=== PATIENT | female | born 1950 | race Caucasian/White ===

== ENCOUNTER 2017-07-30 13:49 | Inpatient (IN) ==
[2017-07-30] MEDS ORDERED: ASPIRIN CHEW 81 MG TABLET PO STA (14:51)
[2017-07-30] MEDS ORDERED: ENOXAPARIN 80 MG/0.8 ML SYRINGE SUBCUT STA (14:51)
[2017-07-30] MEDS ORDERED: ASPIRIN 325 MG TABLET ONE (14:53)
[2017-07-30] MEDS ORDERED: ENOXAPARIN 80 MG/0.8 ML SYRINGE SUBCUT ONE (14:53)
[2017-07-30 15:11] LABS: Basophils # 0.1 10*3/uL (0.0-0.2); Basophils % 0.9 % (0.0-0.8); Eosinophils # 0.1 10*3/uL (0.0-0.87); Eosinophils % 1.1 % (0.00-10.9); Hematocrit 39.9 VOL% (35.7-47.0); Hemoglobin 13.3 GM/DL (12.0-16.0); Immature Granulocytes % 0.4 %; Immature Granulocytes Absolute 0.04 #; Lymphocytes # 1.9 10*3/uL (1.4-4.0); Lymphocytes % 18.6 % (21.3-54.2); Mean Corpuscular HGB Conc 33.3 GM/DL (32-36); Mean Corpuscular Hemoglobin 29 PG (27-34); Mean Corpuscular Volume 87.5 FL (87-102); Mean Platelet Volume 11.9 FL (9.6-12.0); Monocytes # 0.8 10*3/uL (0.11-0.8); Monocytes % 7.8 % (1.7-12.7); Neutrophils # 7.2 10*3/uL (1.4-7.4); Neutrophils % 71.2 % (38.7-73.9); Platelet Count 237 T/CUMM (130-400); Red Blood Count 4.56 MC/CUMM (3.8-5.5); Red Cell Distribution Width 15.3 % (9.3-17.3); White Blood Count 10.2 T/CUMM (4-12)
[2017-07-30 15:17] LABS: INR 0.9; Partial Thromboplastin Time 27.8 SECS (0-40)
[2017-07-30 16:14] LABS: Alanine Aminotransferase 57 U/L (13-56); Albumin 4.2 G/DL (3.4-5.0); Alkaline Phosphatase 79 U/L (45-117); Aspartate Amino Transferase 38 U/L (0-37); Bilirubin,Total < 0.39 MG/DL (0.2-1.0); Blood Urea Nitrogen 67 MG/DL (7-18); Calcium 9.8 MG/DL (8.5-10.1); Glucose 107 MG/DL (74-106); Osmolality,Calculated 280.7 MOS/KG (273-304); Potassium 4.9 MMOL/L (3.5-5.1); Sodium 131 MMOL/L (136-145); Total Protein 8.8 G/DL (6.4-8.3)
[2017-07-30 16:15] LABS: Troponin I Only < 0.015 NG/ML (0.00-0.045)
[2017-07-30] MEDS ORDERED: SODIUM CHLORIDE 0.9% 1,000 ML IV STA (16:24)
[2017-07-30] MEDS ORDERED: ONDANSETRON 4 MG/2 ML VIAL IV PRN (17:14)
[2017-07-30] MEDS ORDERED: ACETAMINOPHEN 325 MG TABLET PO PRN (17:14)
[2017-07-30] MEDS ORDERED: GLUCAGON 1 MG VIAL IM PRN (17:26)
[2017-07-30] MEDS ORDERED: DEXTROSE 50% 25 GM/50 ML VIAL IV PRN (17:26)
[2017-07-30] MEDS: PRAMIPEXOLE 1 MG TABLET PO SCH (21:46)
[2017-07-30] MEDS: ZALEPLON 5 MG CAPSULE PO SCH (21:46)
[2017-07-30] MEDS: POTASSIUM CHLORIDE 20 MEQ TABLET PO SCH (21:46)
[2017-07-30] MEDS: FENOFIBRATE 160 MG TABLET PO SCH (21:47)
[2017-07-30] MEDS: LEVOTHYROXINE 100 MCG TABLET PO SCH (21:47)
[2017-07-30] MEDS: [UNRECOGNIZED DRUG - OTHER] SUBCUT SCH (21:48)
[2017-07-30] MEDS: INSULIN REGULAR SUBCUT SCH (21:48)
[2017-07-30 22:49] LABS: Apearance,Urine CLEAR (Clear); Bilirubin,Urine Negative (Negative); Blood, Urine Negative (Negative); Glucose,Urine (UA) >=500 mg/dL (Negative); Ketones,Urine Negative (Negative); Mucus,Urine Occasional /LPF (Occasional); Nitrite,Urine Negative (Negative); Protein,Urine Negative; RBC,Urine <1 /HPF (0-4); Squamous Epithelial Cell,Urine Occasional /HPF (0-10); Urine Color Straw (Yellow); Urine Urobilinogen < 2.0 EU/DL (0.2-1.0); WBC,Urine <1 /HPF (0-6)
[2017-07-30] MEDS ORDERED: SIMETHICONE CHEW 125 MG TABLET PO ONE (23:00)
[2017-07-31 00:55] LABS: Troponin I Only < 0.015 NG/ML (0.00-0.045)
[2017-07-31 05:17] LABS: Basophils # 0.1 10*3/uL (0.0-0.2); Basophils % 0.8 % (0.0-0.8); Eosinophils # 0.2 10*3/uL (0.0-0.87); Eosinophils % 2.4 % (0.00-10.9); Hematocrit 35.2 VOL% (35.7-47.0); Hemoglobin 11.5 GM/DL (12.0-16.0); Immature Granulocytes % 0.3 %; Immature Granulocytes Absolute 0.02 #; Lymphocytes # 2.2 10*3/uL (1.4-4.0); Lymphocytes % 29.2 % (21.3-54.2); Mean Corpuscular HGB Conc 32.7 GM/DL (32-36); Mean Corpuscular Hemoglobin 29 PG (27-34); Mean Platelet Volume 11.3 FL (9.6-12.0); Monocytes # 0.7 10*3/uL (0.11-0.8); Monocytes % 8.9 % (1.7-12.7); Neutrophils # 4.5 10*3/uL (1.4-7.4); Neutrophils % 58.4 % (38.7-73.9); Platelet Count 209 T/CUMM (130-400); Red Cell Distribution Width 14.7 % (9.3-17.3); White Blood Count 7.6 T/CUMM (4-12)
[2017-07-31 05:49] LABS: Calcium 8.8 MG/DL (8.5-10.1); Osmolality,Calculated 282.4 MOS/KG (273-304); Potassium 4.7 MMOL/L (3.5-5.1)
[2017-07-31 05:52] LABS: Alanine Aminotransferase 46 U/L (13-56); Albumin 3.7 G/DL (3.4-5.0); Alkaline Phosphatase 75 U/L (45-117); Aspartate Amino Transferase 23 U/L (0-37); Bilirubin,Direct < 0.100 MG/DL (0.0-0.20); Bilirubin,Indirect 0.9 MG/DL (0.0-1.0)
[2017-07-31 05:56] LABS: Risk Ratio 8.38; VLDL CHOLESTEROL 91.6 MG/DL
[2017-07-31 05:58] LABS: Troponin I Only < 0.015 NG/ML (0.00-0.045)
[2017-07-31] MEDS: PANTOPRAZOLE 40 MG TABLET PO SCH (09:22)
[2017-07-31] MEDS: POTASSIUM CHLORIDE 20 MEQ TABLET PO SCH ×2 (09:22→21:31)
[2017-07-31] MEDS: INSULIN REGULAR SUBCUT SCH ×2 (09:24→21:32)
[2017-07-31] MEDS ORDERED: ASPIRIN EC 81 MG TABLET PO SCH (21:00)
[2017-07-31] MEDS: ZALEPLON 5 MG CAPSULE PO SCH (21:30)
[2017-07-31] MEDS: PRAMIPEXOLE 1 MG TABLET PO SCH (21:30)
[2017-07-31] MEDS: CARVEDILOL 3.125 MG TABLET PO SCH (21:31)
[2017-07-31] MEDS: [UNRECOGNIZED DRUG - OTHER] SUBCUT SCH (21:32)
[2017-07-31] MEDS: LEVOTHYROXINE 100 MCG TABLET PO SCH (21:32)
[2017-07-31] MEDS: FENOFIBRATE 160 MG TABLET PO SCH (21:32)
[2017-08-01 06:30] LABS: Basophils # 0.1 10*3/uL (0.0-0.2); Basophils % 0.8 % (0.0-0.8); Eosinophils # 0.2 10*3/uL (0.0-0.87); Eosinophils % 2.6 % (0.00-10.9); Hematocrit 35.3 VOL% (35.7-47.0); Hemoglobin 11.7 GM/DL (12.0-16.0); Immature Granulocytes % 0.5 %; Immature Granulocytes Absolute 0.03 #; Lymphocytes # 2.3 10*3/uL (1.4-4.0); Lymphocytes % 34.1 % (21.3-54.2); Mean Corpuscular HGB Conc 33.1 GM/DL (32-36); Mean Corpuscular Hemoglobin 29 PG (27-34); Mean Corpuscular Volume 88.3 FL (87-102); Monocytes # 0.8 10*3/uL (0.11-0.8); Monocytes % 12.1 % (1.7-12.7); Neutrophils # 3.3 10*3/uL (1.4-7.4); Neutrophils % 49.9 % (38.7-73.9); Platelet Count 193 T/CUMM (130-400); Red Cell Distribution Width 14.7 % (9.3-17.3); White Blood Count 6.6 T/CUMM (4-12)
[2017-08-01 07:04] LABS: Calcium 8.8 MG/DL (8.5-10.1); Osmolality,Calculated 283.4 MOS/KG (273-304); Potassium 4.2 MMOL/L (3.5-5.1)
[2017-08-01 07:57] VITALS: BP 107/63
[2017-08-01] MEDS ORDERED: FARXIGA PO SCH (09:00)
[2017-08-01] MEDS: PANTOPRAZOLE 40 MG TABLET PO SCH (09:39)
[2017-08-01] MEDS: POTASSIUM CHLORIDE 20 MEQ TABLET PO SCH (09:40)
[2017-08-01] MEDS: INSULIN REGULAR SUBCUT SCH (09:40)
[2017-08-01] MEDS: CARVEDILOL 3.125 MG TABLET PO SCH (09:40)
[2017-08-01] MEDS ORDERED: CARVEDILOL 3.125 MG TABLET PO ONE (10:00)
[2017-08-01] MEDS ORDERED: CARVEDILOL 6.25 MG TABLET PO SCH (17:00)
== END 2017-08-01 10:47 | disposition home or self-care (01) | DRG 683 ==
LOC: N.ED 13:49 → SUATTDRO 16:28 → N.EDINP 16:28 → N.2E 17:50
PROVIDERS: ADMIT Internal Medicine

== ENCOUNTER 2019-02-20 13:26 | Inpatient (IN) ==
[2019-02-20 14:38] LABS: Basophils # 0.1 10*3/uL (0.0-0.2); Basophils % 0.6 % (0.0-0.8); Eosinophils # 0.1 10*3/uL (0.0-0.87); Eosinophils % 0.9 % (0.00-10.9); Hematocrit 44.6 VOL% (35.7-47.0); Hemoglobin 14.6 GM/DL (12.0-16.0); Immature Granulocytes % 0.3 %; Immature Granulocytes Absolute 0.03 #; Lymphocytes # 1.6 10*3/uL (1.4-4.0); Lymphocytes % 15.9 % (21.3-54.2); Mean Corpuscular HGB Conc 32.7 GM/DL (32-36); Mean Corpuscular Volume 87.5 FL (87-102); Mean Platelet Volume 11.4 FL (9.6-12.0); Monocytes % 7.4 % (1.7-12.7); Neutrophils % 74.9 % (38.7-73.9); Platelet Count 210 T/CUMM (130-400); Red Cell Distribution Width 14.2 % (9.3-17.3)
[2019-02-20] MEDS ORDERED: DICYCLOMINE 20 MG/2 ML AMP IM ONE (14:55)
[2019-02-20] MEDS ORDERED: METOCLOPRAMIDE 10 MG/2 ML VIAL IV STA (14:55)
[2019-02-20] MEDS ORDERED: ONDANSETRON 4 MG/2 ML VIAL IV STA (14:55)
[2019-02-20] MEDS ORDERED: PANTOPRAZOLE 40 MG VIAL IV STA (14:55)
[2019-02-20 15:19] LABS: Amylase 32 U/L (25-115); Troponin I < 0.015 NG/ML (0.00-0.045)
[2019-02-20 16:02] LABS: Albumin 3.5 G/DL (3.4-5.0); Bilirubin,Total 1.2 MG/DL (0.2-1.0); Calcium 9.2 MG/DL (8.5-10.1); Osmolality,Calculated 281.7 MOS/KG (273-304); Total Protein 7.9 G/DL (6.4-8.3)
[2019-02-20] MEDS ORDERED: POTASSIUM BICARB EFFERVESCENT 25 MEQ TABLET PO ONE (16:24)
[2019-02-20] MEDS ORDERED: ONDANSETRON 4 MG/2 ML VIAL IV PRN (18:22)
[2019-02-20] MEDS ORDERED: ACETAMINOPHEN 325 MG TABLET PO PRN (18:22)
[2019-02-20] MEDS ORDERED: GLUCAGON 1 MG VIAL IM PRN (18:22)
[2019-02-20] MEDS ORDERED: DEXTROSE 50% 25 GM/50 ML VIAL IV PRN (18:22)
[2019-02-20] MEDS: POTASSIUM CHLORIDE 20 MEQ TABLET PO SCH (21:31)
[2019-02-20] MEDS: GEMFIBROZIL 600 MG TABLET PO SCH (21:31)
[2019-02-20] MEDS: DICYCLOMINE 20 MG TABLET PO SCH (21:31)
[2019-02-20] MEDS: PRAMIPEXOLE 1 MG TABLET PO SCH (21:31)
[2019-02-20] MEDS: ASPIRIN EC 81 MG TABLET PO SCH (21:31)
[2019-02-20] MEDS: PANTOPRAZOLE 40 MG TABLET PO SCH (21:32)
[2019-02-20] MEDS: AMITRIPTYLINE 25 MG TABLET PO PRN (21:32)
[2019-02-20] MEDS: ALLOPURINOL 300 MG TABLET PO SCH (21:32)
[2019-02-20] MEDS: traMADol 50 MG TABLET PO PRN (21:32)
[2019-02-20] MEDS: clonazePAM 0.5 MG TABLET PO SCH (21:32)
[2019-02-20] MEDS: FLUoxetine 10 MG CAPSULE PO SCH (21:33)
[2019-02-20] MEDS: INSULIN REGULAR 100 UNIT/ML SUBCUT SCH (21:33)
[2019-02-20 22:20] LABS: Apearance,Urine CLEAR (Clear); Bilirubin,Urine Negative (Negative); Blood, Urine Negative (Negative); Glucose,Urine (UA) Negative (Negative); Ketones,Urine Negative (Negative); Mucus,Urine Occasional /LPF (Occasional); Nitrite,Urine Negative (Negative); Protein,Urine Negative; RBC,Urine 3 /HPF (0-4); Squamous Epithelial Cell,Urine Occasional /HPF (0-10); Urine Specific Gravity 1.018 (1.001-1.035); WBC,Urine 1 /HPF (0-6)
[2019-02-20 22:21] LABS: Urine Color Dark yellow (Yellow)
[2019-02-21] MEDS: METOCLOPRAMIDE 10 MG/2 ML VIAL IV SCH ×4 (00:33→18:29)
[2019-02-21] MEDS: PREGABALIN 50 MG CAPSULE PO PRN ×2 (01:26→21:06)
[2019-02-21] MEDS ORDERED: DEXTROSE 10% 250 ML IV ONE (06:01)
[2019-02-21] MEDS: LEVOTHYROXINE 112 MCG TABLET PO SCH (06:20)
[2019-02-21 06:55] LABS: Albumin 2.9 G/DL (3.4-5.0); Bilirubin,Total 2.8 MG/DL (0.2-1.0); Calcium 8.9 MG/DL (8.5-10.1); Total Protein 6.7 G/DL (6.4-8.3)
[2019-02-21] MEDS: INSULIN REGULAR 100 UNIT/ML SUBCUT SCH ×4 (07:40→21:07)
[2019-02-21] MEDS: POTASSIUM CHLORIDE RIDER 10 MEQ in PREMIX 1 EACH IV PRN ×8 (08:00→23:48)
[2019-02-21] MEDS ORDERED: Semaglutide [Ozempic] 1 MG SUBCUT SCH (09:00)
[2019-02-21] MEDS: POTASSIUM CHLORIDE 20 MEQ TABLET PO SCH ×3 (09:03→21:06)
[2019-02-21] MEDS: GEMFIBROZIL 600 MG TABLET PO SCH ×2 (09:03→21:10)
[2019-02-21] MEDS: FENOFIBRATE 160 MG TABLET PO SCH (09:03)
[2019-02-21] MEDS: FUROSEMIDE 40 MG TABLET PO SCH (09:03)
[2019-02-21] MEDS: DICYCLOMINE 20 MG TABLET PO SCH ×3 (09:03→21:06)
[2019-02-21] MEDS: traMADol 50 MG TABLET PO PRN (10:30)
[2019-02-21] MEDS ORDERED: Evolocumab [Repatha Syringe] 140 MG SUBCUT SCH (19:25)
[2019-02-21] MEDS: clonazePAM 0.5 MG TABLET PO SCH (21:05)
[2019-02-21] MEDS: PANTOPRAZOLE 40 MG TABLET PO SCH (21:05)
[2019-02-21] MEDS: ALLOPURINOL 300 MG TABLET PO SCH (21:05)
[2019-02-21] MEDS: ASPIRIN EC 81 MG TABLET PO SCH (21:05)
[2019-02-21] MEDS: PRAMIPEXOLE 1 MG TABLET PO SCH (21:06)
[2019-02-21] MEDS: FLUoxetine 10 MG CAPSULE PO SCH (21:06)
[2019-02-21] MEDS: AMITRIPTYLINE 25 MG TABLET PO PRN (21:06)
[2019-02-22] MEDS: METOCLOPRAMIDE 10 MG/2 ML VIAL IV SCH ×5 (00:20→23:50)
[2019-02-22] MEDS: POTASSIUM CHLORIDE RIDER 10 MEQ in PREMIX 1 EACH IV PRN ×4 (01:00→15:05)
[2019-02-22] MEDS: traMADol 50 MG TABLET PO PRN (02:50)
[2019-02-22 05:54] LABS: Basophils % 0.6 % (0.0-0.8); Eosinophils # 0.1 10*3/uL (0.0-0.87); Eosinophils % 1.6 % (0.00-10.9); Hematocrit 41.7 VOL% (35.7-47.0); Hemoglobin 13.3 GM/DL (12.0-16.0); Immature Granulocytes % 0.6 %; Immature Granulocytes Absolute 0.03 #; Lymphocytes # 1.2 10*3/uL (1.4-4.0); Lymphocytes % 23.1 % (21.3-54.2); Mean Corpuscular HGB Conc 31.9 GM/DL (32-36); Mean Corpuscular Volume 89.5 FL (87-102); Mean Platelet Volume 12.5 FL (9.6-12.0); Monocytes % 7.9 % (1.7-12.7); Neutrophils % 66.2 % (38.7-73.9); Platelet Count 161 T/CUMM (130-400); Red Blood Count 4.66 MC/CUMM (3.8-5.5); Red Cell Distribution Width 14.6 % (9.3-17.3); White Blood Count 5.2 T/CUMM (4-12)
[2019-02-22 06:16] LABS: Bilirubin,Total 4.9 MG/DL (0.2-1.0); Calcium 8.5 MG/DL (8.5-10.1); Osmolality,Calculated 278.8 MOS/KG (273-304); Total Protein 6.8 G/DL (6.4-8.3)
[2019-02-22] MEDS: LEVOTHYROXINE 112 MCG TABLET PO SCH (06:21)
[2019-02-22] MEDS: INSULIN REGULAR 100 UNIT/ML SUBCUT SCH ×4 (07:27→20:55)
[2019-02-22] MEDS ORDERED: INDOMETHACIN SUPP 50 MG SUPP RECTAL ONE ×2 (08:27→08:51)
[2019-02-22] MEDS ORDERED: ETOMIDATE 20 MG/10 ML VIAL IV ONE ×2 (09:00→12:12)
[2019-02-22] MEDS ORDERED: ONDANSETRON 4 MG/2 ML VIAL ONE ×2 (09:00→12:11)
[2019-02-22] MEDS ORDERED: GLYCOPYRROLATE 0.4 MG/2 ML VIAL ONE ×2 (09:00→12:12)
[2019-02-22] MEDS ORDERED: DEXAMETHASONE 4 MG/1 ML VIAL ONE (09:00)
[2019-02-22] MEDS ORDERED: ROCURONIUM 100 MG/10 ML VIAL IV ONE (09:00)
[2019-02-22] MEDS ORDERED: LIDOCAINE 2% 5 ML VIAL ONE ×2 (09:00→12:11)
[2019-02-22] MEDS ORDERED: NEOSTIGMINE 10 MG/10 ML VIAL ONE ×2 (09:00→12:13)
[2019-02-22] MEDS ORDERED: INDOCYANINE GREEN 25 MG VIAL IV ONE (09:02)
[2019-02-22] MEDS: DICYCLOMINE 20 MG TABLET PO SCH ×3 (09:10→20:47)
[2019-02-22] MEDS: POTASSIUM CHLORIDE 20 MEQ TABLET PO SCH ×3 (09:10→20:46)
[2019-02-22] MEDS: LACTATED RINGERS 1,000 ML IV SCH (09:28)
[2019-02-22] MEDS ORDERED: GLUCAGON 1 MG VIAL ONE (11:48)
[2019-02-22] MEDS ORDERED: fentaNYL 100 MCG/2 ML VIAL ONE (12:11)
[2019-02-22] MEDS ORDERED: SEVOFLURANE 1 UNIT/15 MINUTE INH ONE (12:12)
[2019-02-22] MEDS: FENOFIBRATE 160 MG TABLET PO SCH (15:18)
[2019-02-22] MEDS: GEMFIBROZIL 600 MG TABLET PO SCH ×2 (15:20→20:46)
[2019-02-22] MEDS: FUROSEMIDE 40 MG TABLET PO SCH (15:20)
[2019-02-22] MEDS ORDERED: metOLazone 2.5 MG TABLET PO SCH (18:20)
[2019-02-22] MEDS: PANTOPRAZOLE 40 MG TABLET PO SCH (20:46)
[2019-02-22] MEDS: ASPIRIN EC 81 MG TABLET PO SCH (20:46)
[2019-02-22] MEDS: ALLOPURINOL 300 MG TABLET PO SCH (20:46)
[2019-02-22] MEDS: clonazePAM 0.5 MG TABLET PO SCH (20:47)
[2019-02-22] MEDS: FLUoxetine 10 MG CAPSULE PO SCH (20:47)
[2019-02-22] MEDS: PRAMIPEXOLE 1 MG TABLET PO SCH (20:47)
[2019-02-23 04:49] LABS: Basophils % 0.1 % (0.0-0.8); Hematocrit 38.6 VOL% (35.7-47.0); Hemoglobin 12.7 GM/DL (12.0-16.0); Immature Granulocytes % 0.4 %; Immature Granulocytes Absolute 0.04 #; Lymphocytes # 0.9 10*3/uL (1.4-4.0); Lymphocytes % 9.2 % (21.3-54.2); Mean Corpuscular HGB Conc 32.9 GM/DL (32-36); Mean Corpuscular Volume 87.7 FL (87-102); Mean Platelet Volume 11.9 FL (9.6-12.0); Monocytes % 5.3 % (1.7-12.7); Platelet Count 182 T/CUMM (130-400); Red Cell Distribution Width 14.3 % (9.3-17.3); White Blood Count 9.3 T/CUMM (4-12)
[2019-02-23 05:13] LABS: Bilirubin,Total 2.5 MG/DL (0.2-1.0); Calcium 8.9 MG/DL (8.5-10.1); Osmolality,Calculated 279.5 MOS/KG (273-304); Total Protein 7.1 G/DL (6.4-8.3)
[2019-02-23] MEDS: METOCLOPRAMIDE 10 MG/2 ML VIAL IV SCH ×3 (05:24→18:24)
[2019-02-23] MEDS ORDERED: DIAZEPAM 5 MG TABLET PO ONE (06:00)
[2019-02-23] MEDS ORDERED: FAMOTIDINE 20 MG TABLET PO ONE (06:00)
[2019-02-23] MEDS: LEVOTHYROXINE 112 MCG TABLET PO SCH (06:10)
[2019-02-23] MEDS ORDERED: TISSUE ADHESIVE 1 EACH APPLICATOR TOP ONE (06:25)
[2019-02-23] MEDS ORDERED: LIDOCAINE 1%/EPI INJ 20 ML VIAL ONE (06:25)
[2019-02-23] MEDS ORDERED: BUPIVACAINE MPF 0.25% 30 ML VIAL ONE (06:25)
[2019-02-23] MEDS ORDERED: cefOXitin 2,000 MG in SYRINGE 1 EACH IV ONE (07:00)
[2019-02-23] MEDS ORDERED: LIDOCAINE 2% 5 ML VIAL ONE (08:45)
[2019-02-23] MEDS ORDERED: SUCCINYLCHOLINE 200 MG/10 ML VIAL ONE (08:45)
[2019-02-23] MEDS ORDERED: fentaNYL 100 MCG/2 ML VIAL ONE (08:45)
[2019-02-23] MEDS ORDERED: PROPOFOL 200 MG/20 ML VIAL IV ONE (08:45)
[2019-02-23] MEDS ORDERED: SEVOFLURANE 1 UNIT/15 MINUTE INH ONE (08:45)
[2019-02-23] MEDS ORDERED: GLYCOPYRROLATE 0.4 MG/2 ML VIAL ONE (08:45)
[2019-02-23] MEDS ORDERED: PHENYLEPHRINE 1 MG/10 ML SYRINGE IV ONE (08:45)
[2019-02-23] MEDS ORDERED: ROCURONIUM 100 MG/10 ML VIAL IV ONE (08:46)
[2019-02-23] MEDS ORDERED: SODIUM CHLORIDE 0.9% 1,000 ML IV ONE (08:46)
[2019-02-23] MEDS ORDERED: NEOSTIGMINE 10 MG/10 ML VIAL ONE (08:46)
[2019-02-23] MEDS ORDERED: BISACODYL 5 MG TABLET PO PRN (08:54)
[2019-02-23] MEDS ORDERED: ALBUTEROL/IPRATROPIUM 3 ML NEB RESP TX PRN (08:54)
[2019-02-23] MEDS: INSULIN REGULAR 100 UNIT/ML SUBCUT SCH ×4 (09:04→21:00)
[2019-02-23] MEDS: LACTATED RINGERS 1,000 ML IV SCH ×4 (09:20→23:36)
[2019-02-23] MEDS ORDERED: MEPERIDINE 25 MG/1 ML VIAL IV PRN (09:31)
[2019-02-23] MEDS: DICYCLOMINE 20 MG TABLET PO SCH ×3 (09:57→20:50)
[2019-02-23] MEDS: POTASSIUM CHLORIDE 20 MEQ TABLET PO SCH ×3 (09:57→20:50)
[2019-02-23] MEDS: FUROSEMIDE 40 MG TABLET PO SCH (09:57)
[2019-02-23] MEDS: GEMFIBROZIL 600 MG TABLET PO SCH ×2 (09:57→22:14)
[2019-02-23] MEDS: FENOFIBRATE 160 MG TABLET PO SCH (09:58)
[2019-02-23] MEDS ORDERED: traMADol 50 MG TABLET PO PRN (10:38)
[2019-02-23] MEDS: MEPERIDINE 25 MG/1 ML VIAL IV PRN ×4 (11:45→23:36)
[2019-02-23] MEDS: cefOXitin 2,000 MG in SYRINGE 1 EACH IV SCH ×2 (12:56→18:18)
[2019-02-23] MEDS: FLUoxetine 10 MG CAPSULE PO SCH (20:50)
[2019-02-23] MEDS: PRAMIPEXOLE 1 MG TABLET PO SCH (20:50)
[2019-02-23] MEDS: ASPIRIN EC 81 MG TABLET PO SCH (20:50)
[2019-02-23] MEDS: ALLOPURINOL 300 MG TABLET PO SCH (20:50)
[2019-02-23] MEDS: PANTOPRAZOLE 40 MG TABLET PO SCH (20:51)
[2019-02-23] MEDS: clonazePAM 0.5 MG TABLET PO SCH (20:51)
[2019-02-24] MEDS: METOCLOPRAMIDE 10 MG/2 ML VIAL IV SCH ×2 (00:41→06:58)
[2019-02-24] MEDS: cefOXitin 2,000 MG in SYRINGE 1 EACH IV SCH (00:53)
[2019-02-24] MEDS: MEPERIDINE 25 MG/1 ML VIAL IV PRN ×2 (02:26→07:01)
[2019-02-24 05:17] LABS: Basophils % 0.3 % (0.0-0.8); Eosinophils % 0.2 % (0.00-10.9); Hemoglobin 12.2 GM/DL (12.0-16.0); Immature Granulocytes % 0.8 %; Lymphocytes # 1.2 10*3/uL (1.4-4.0); Lymphocytes % 10.2 % (21.3-54.2); Mean Corpuscular HGB Conc 32.1 GM/DL (32-36); Mean Corpuscular Volume 91.3 FL (87-102); Mean Platelet Volume 12.1 FL (9.6-12.0); Monocytes % 5.9 % (1.7-12.7); Neutrophils % 82.6 % (38.7-73.9); Platelet Count 168 T/CUMM (130-400); Red Blood Count 4.16 MC/CUMM (3.8-5.5); White Blood Count 11.8 T/CUMM (4-12)
[2019-02-24 05:40] LABS: Albumin 2.4 G/DL (3.4-5.0); Bilirubin,Total 1.7 MG/DL (0.2-1.0); Calcium 8.2 MG/DL (8.5-10.1); Osmolality,Calculated 280.4 MOS/KG (273-304)
[2019-02-24] MEDS: LEVOTHYROXINE 112 MCG TABLET PO SCH (06:58)
[2019-02-24 07:58] VITALS: BP 99/44
[2019-02-24] MEDS: DICYCLOMINE 20 MG TABLET PO SCH (08:31)
[2019-02-24] MEDS: FUROSEMIDE 40 MG TABLET PO SCH (08:31)
[2019-02-24] MEDS: POTASSIUM CHLORIDE 20 MEQ TABLET PO SCH (08:32)
[2019-02-24] MEDS: FENOFIBRATE 160 MG TABLET PO SCH (08:32)
[2019-02-24] MEDS: GEMFIBROZIL 600 MG TABLET PO SCH (08:33)
[2019-02-24] MEDS: INSULIN REGULAR 100 UNIT/ML SUBCUT SCH (08:34)
[2019-02-24] MEDS ORDERED: KETOROLAC 10 MG TABLET PO ONE (08:59)
== END 2019-02-24 10:28 | disposition home or self-care (01) | DRG 419 ==
LOC: N.ED 13:26 → N.EDINP 18:20 → N.3E 18:54
PROVIDERS: ADMIT Surgery; ATTEND Surgery
PROC: ERCPWSP (ICD-10-PCS; 2019-02-22 08:30)

== ENCOUNTER 2019-10-19 06:37 | Inpatient (IN) ==
[2019-10-14 12:46] LABS: Basophils # 0.1 10*3/uL (0.0-0.2); Basophils % 0.5 % (0.0-0.8); Eosinophils # 0.2 10*3/uL (0.0-0.87); Eosinophils % 1.5 % (0.00-10.9); Hematocrit 46.6 VOL% (35.7-47.0); Hemoglobin 15.2 GM/DL (12.0-16.0); Immature Granulocytes % 0.4 %; Immature Granulocytes Absolute 0.04 #; Lymphocytes # 3.2 10*3/uL (1.4-4.0); Lymphocytes % 31.1 % (21.3-54.2); Mean Corpuscular HGB Conc 32.6 GM/DL (32-36); Mean Corpuscular Volume 84.7 FL (87-102); Mean Platelet Volume 11.1 FL (9.6-12.0); Monocytes % 8.6 % (1.7-12.7); Neutrophils % 57.9 % (38.7-73.9); Platelet Count 236 T/CUMM (130-400); Red Cell Distribution Width 14.4 % (9.3-17.3); White Blood Count 10.3 T/CUMM (4-12)
[2019-10-14 13:00] LABS: INR 0.9; PT Patient Result 9.8 SECS (9.8-11.9)
[2019-10-14 13:08] LABS: Calcium 9.6 MG/DL (8.5-10.1); Osmolality,Calculated 266.2 MOS/KG (273-304)
[~2019-10-19 06:37] MED LIST: ceFAZolin 1,000 MG VIAL ONE; ceFAZolin 1,000 MG in SYRINGE 1 EACH IV ONE
[2019-10-19] MEDS: LACTATED RINGERS 1,000 ML IV SCH ×3 (07:05→16:26)
[2019-10-19] MEDS ORDERED: VANCOMYCIN 1,000 MG VIAL ONE (07:19)
[2019-10-19] MEDS ORDERED: HEPARIN 5,000 UNIT/1 ML VIAL ONE (07:19)
[2019-10-19] MEDS ORDERED: TISSUE ADHESIVE 1 EACH APPLICATOR TOP ONE (07:20)
[2019-10-19] MEDS ORDERED: LIDOCAINE 1% 20 ML VIAL ONE (07:20)
[2019-10-19] MEDS ORDERED: DEXAMETHASONE 4 MG/1 ML VIAL ONE (07:40)
[2019-10-19] MEDS ORDERED: EPINEPHrine 1 MG/ML VIAL ONE (07:40)
[2019-10-19] MEDS ORDERED: ROPIVACAINE 0.5% 30 ML VIAL ONE (07:40)
[2019-10-19] MEDS ORDERED: oxyCODONE/ACETAMINOPHEN 5-325 MG TABLET PO PRN (10:01)
[2019-10-19] MEDS ORDERED: ONDANSETRON 4 MG/2 ML VIAL IV PRN (10:01)
[2019-10-19] MEDS ORDERED: DEXTROSE 50% 25 GM/50 ML VIAL IV PRN (10:01)
[2019-10-19] MEDS ORDERED: PROMETHAZINE 25 MG/1 ML VIAL IM PRN (10:01)
[2019-10-19] MEDS ORDERED: GLUCAGON 1 MG VIAL IM PRN (10:01)
[2019-10-19] MEDS ORDERED: NALOXONE 0.4 MG/ML VIAL IV PRN (10:01)
[2019-10-19] MEDS ORDERED: HYDROmorphone 2 MG/1 ML VIAL IV PRN (10:01)
[2019-10-19] MEDS ORDERED: PREGABALIN 50 MG CAPSULE PO PRN (10:07)
[2019-10-19] MEDS ORDERED: NON-FORMULARY MEDICATION (Evolocumab [Repatha Syringe] 140 MG) SUBCUT SCH (10:15)
[2019-10-19] MEDS ORDERED: LIDOCAINE 2% 5 ML VIAL ONE (10:27)
[2019-10-19] MEDS ORDERED: propofoL 200 MG/20 ML VIAL IV ONE (10:27)
[2019-10-19] MEDS ORDERED: ETOMIDATE 40 MG/20 ML VIAL IV ONE (10:28)
[2019-10-19] MEDS ORDERED: GLYCOPYRROLATE 0.4 MG/2 ML VIAL ONE (10:28)
[2019-10-19] MEDS ORDERED: SEVOFLURANE 1 UNIT/15 MINUTE INH ONE (10:28)
[2019-10-19] MEDS ORDERED: HEPARIN 10,000 UNIT/10 ML VIAL ONE (10:28)
[2019-10-19] MEDS ORDERED: NEOSTIGMINE 10 MG/10 ML VIAL ONE (10:28)
[2019-10-19] MEDS ORDERED: fentaNYL 100 MCG/2 ML VIAL ONE (10:28)
[2019-10-19] MEDS ORDERED: HEPARIN/NACL 0.9% 2 UNITS/ML 500 ML IV ONE (10:28)
[2019-10-19] MEDS ORDERED: PHENYLEPHRINE DRIP 20 MG/250 ML PREMIX IV ONE (10:28)
[2019-10-19] MEDS ORDERED: ROCURONIUM 100 MG/10 ML VIAL IV ONE (10:29)
[2019-10-19] MEDS ORDERED: PHENYLEPHRINE 1 MG/10 ML SYRINGE IV ONE (10:29)
[2019-10-19] MEDS ORDERED: PHENYLEPHRINE DRIP 40 MG/250 ML PREMIX IV SCH (10:30)
[2019-10-19] MEDS ORDERED: NITROPRUSSIDE 100 MG in DEXTROSE 5% 250 ML IV SCH (10:30)
[2019-10-19] MEDS: HYDROmorphone 2 MG/1 ML VIAL IV PRN ×2 (11:34→21:24)
[2019-10-19] MEDS ORDERED: metOLazone 2.5 MG TABLET PO SCH (12:00)
[2019-10-19] MEDS: oxyCODONE/ACETAMINOPHEN 5-325 MG TABLET PO PRN ×2 (14:19→21:24)
[2019-10-19] MEDS: INSULIN REGULAR ** CONC 500 UNIT/ML ** 20 ML VIAL SUBCUT SCH (18:19)
[2019-10-19] MEDS ORDERED: ASPIRIN EC 81 MG TABLET PO SCH (21:00)
[2019-10-19] MEDS ORDERED: clonazePAM 0.5 MG TABLET PO SCH (21:00)
[2019-10-19] MEDS ORDERED: traMADol 50 MG TABLET PO SCH (21:00)
[2019-10-19] MEDS ORDERED: allopurinoL 300 MG TABLET PO SCH (21:00)
[2019-10-19] MEDS ORDERED: FLUoxetine 20 MG CAPSULE PO SCH (21:00)
[2019-10-19] MEDS ORDERED: PRAMIPEXOLE 1 MG TABLET PO SCH (21:00)
[2019-10-19] MEDS ORDERED: PANTOPRAZOLE 20 MG TABLET PO SCH (21:00)
[2019-10-19] MEDS: POTASSIUM CHLORIDE 20 MEQ TABLET PO SCH (21:10)
[2019-10-20] MEDS: LACTATED RINGERS 1,000 ML IV SCH ×4 (02:41→08:16)
[2019-10-20] MEDS: HYDROmorphone 2 MG/1 ML VIAL IV PRN (02:51)
[2019-10-20] MEDS: oxyCODONE/ACETAMINOPHEN 5-325 MG TABLET PO PRN (02:51)
[2019-10-20] MEDS ORDERED: LEVOTHYROXINE 112 MCG TABLET PO SCH (06:30)
[2019-10-20] MEDS: INSULIN REGULAR ** CONC 500 UNIT/ML ** 20 ML VIAL SUBCUT SCH ×2 (08:20→17:15)
[2019-10-20] MEDS: POTASSIUM CHLORIDE 20 MEQ TABLET PO SCH (08:21)
[2019-10-20] MEDS ORDERED: CLOPIDOGREL 75 MG TABLET PO SCH (09:00)
[2019-10-20] MEDS ORDERED: FUROSEMIDE 20 MG TABLET PO SCH (09:00)
[2019-10-20] MEDS ORDERED: ASPIRIN EC 81 MG TABLET PO SCH (09:00)
[2019-10-20] MEDS ORDERED: INSULIN REGULAR ** CONC 500 UNIT/ML ** 20 ML VIAL SUBCUT SCH (10:24)
[2019-10-20 16:43] VITALS: BP 106/51
[2019-10-24] MEDS ORDERED: NON-FORMULARY MEDICATION (Semaglutide [Ozempic] 1 MG) SUBCUT SCH (08:27)
== END 2019-10-20 17:30 | disposition home or self-care (01) | DRG 39 ==
LOC: N.SDSINP 06:37 → N.CVR 11:18 → N.ICU 14:36 → N.3E 10-20 13:00
PROVIDERS: ADMIT Surgery; ATTEND Surgery

== ENCOUNTER 2021-07-01 11:52 | Observation (INO) ==
[2021-07-01 12:40] LABS: Basophils % 0.2 % (0.0-0.8); Eosinophils # 0.2 10*3/uL (0.0-0.87); Eosinophils % 2.1 % (0.00-10.9); Hematocrit 49.6 VOL% (35.7-47.0); Hemoglobin 16.1 GM/DL (12.0-16.0); Immature Granulocytes % 0.3 %; Immature Granulocytes Absolute 0.03 #; Lymphocytes # 0.6 10*3/uL (1.4-4.0); Lymphocytes % 6.7 % (21.3-54.2); Mean Corpuscular HGB Conc 32.5 GM/DL (32-36); Mean Corpuscular Volume 86.9 FL (87-102); Mean Platelet Volume 11.5 FL (9.6-12.0); Monocytes % 5.4 % (1.7-12.7); Neutrophils % 85.3 % (38.7-73.9); Platelet Count 153 T/CUMM (130-400); Red Blood Count 5.71 MC/CUMM (3.8-5.5); Red Cell Distribution Width 13.8 % (9.3-17.3); White Blood Count 9.1 T/CUMM (4-12)
[2021-07-01 13:04] LABS: Bilirubin,Total 0.7 MG/DL (0.20-1.00); Calcium 9.2 MG/DL (8.5-10.1); Potassium 3.9 MMOL/L (3.5-5.1); Total Protein 8.4 G/DL (6.4-8.2)
[2021-07-01] MEDS ORDERED: LACTATED RINGERS 1,000 ML IV ONE (13:13)
[2021-07-01] MEDS ORDERED: KETOROLAC 30 MG/1 ML VIAL IV STA (14:09)
[2021-07-01] MEDS ORDERED: ONDANSETRON 4 MG/2 ML VIAL IV PRN (15:39)
[2021-07-01] MEDS ORDERED: GLUCAGON 1 MG VIAL IM PRN (15:39)
[2021-07-01] MEDS ORDERED: ACETAMINOPHEN 325 MG TABLET PO PRN (15:39)
[2021-07-01] MEDS ORDERED: DEXTROSE 10% 250 ML BAG IV PRN (15:48)
[2021-07-01 16:30] LABS: Thyroid Stimulating Hormone 1.7 uIU/ml (0.358-3.74)
[2021-07-01] MEDS: LACTATED RINGERS 1,000 ML IV SCH (16:48)
[2021-07-01] MEDS ORDERED: ENOXAPARIN 40 MG/0.4 ML SYRINGE SUBCUT SCH (17:00)
[2021-07-01] MEDS: INSULIN LISPRO 100 UNIT/ML SUBCUT SCH (18:27)
[2021-07-01] MEDS: KETOROLAC 30 MG/1 ML VIAL IV SCH (20:36)
[2021-07-01] MEDS ORDERED: traMADol 50 MG TABLET PO PRN (21:00)
[2021-07-01] MEDS ORDERED: ASPIRIN EC 81 MG TABLET PO SCH (21:00)
[2021-07-01] MEDS: POTASSIUM CHLORIDE 20 MEQ TABLET PO SCH (21:06)
[2021-07-02] MEDS: INSULIN LISPRO 100 UNIT/ML SUBCUT SCH ×2 (02:08→06:44)
[2021-07-02] MEDS: KETOROLAC 30 MG/1 ML VIAL IV SCH ×2 (02:08→08:18)
[2021-07-02] MEDS: LACTATED RINGERS 1,000 ML IV SCH (02:21)
[2021-07-02 05:42] LABS: Basophils % 0.4 % (0.0-0.8); Eosinophils % 0.4 % (0.00-10.9); Hematocrit 40.2 VOL% (35.7-47.0); Hemoglobin 13.3 GM/DL (12.0-16.0); Immature Granulocytes % 0.4 %; Immature Granulocytes Absolute 0.02 #; Lymphocytes # 0.6 10*3/uL (1.4-4.0); Lymphocytes % 11.5 % (21.3-54.2); Mean Corpuscular HGB Conc 33.1 GM/DL (32-36); Mean Corpuscular Volume 85.5 FL (87-102); Mean Platelet Volume 11.5 FL (9.6-12.0); Monocytes % 9.5 % (1.7-12.7); Neutrophils % 77.8 % (38.7-73.9); Platelet Count 162 T/CUMM (130-400); Red Cell Distribution Width 13.8 % (9.3-17.3); White Blood Count 5.6 T/CUMM (4-12)
[2021-07-02 05:58] LABS: Albumin 2.8 G/DL (3.4-5.0); Bilirubin,Total 0.5 MG/DL (0.20-1.00); Calcium 8.5 MG/DL (8.5-10.1); Osmolality,Calculated 279.7 MOS/KG (273-304); Potassium 3.7 MMOL/L (3.5-5.1); Total Protein 6.4 G/DL (6.4-8.2)
[2021-07-02] MEDS ORDERED: LEVOTHYROXINE 112 MCG TABLET PO SCH (06:30)
[2021-07-02] MEDS ORDERED: PANTOPRAZOLE 40 MG TABLET PO SCH (09:00)
[2021-07-02] MEDS: POTASSIUM CHLORIDE 20 MEQ TABLET PO SCH (09:31)
[2021-07-02 11:34] VITALS: BP 119/66
== END 2021-07-02 11:32 | disposition home health service (06) ==
LOC: N.EDINP 11:52 → N.ED 11:52 → SUATTDRO 15:39 → N.EDINP 07-02 11:53
PROVIDERS: ADMIT Emergency Medicine; ATTEND Internal Medicine